=== PATIENT | female | born 1975 | race Caucasian/White ===

== ENCOUNTER 2016-11-17 12:32 | Outpatient (CLI) | payer SELFPAY | END 2016-11-17 12:33 | disposition home or self-care (01) | LOC: LABBT 12:32 | PROVIDERS: ATTEND Specialist | DX: Z01.812 Encounter for preprocedural laboratory examination (principal); C53.9 Malignant neoplasm of cervix uteri, unspecified ==

== ENCOUNTER 2016-11-18 06:12 | Day surgery (SDC) | payer MEDICAID, SELFPAY ==
[2016-11-17 12:54] VITALS: BMI 27.6
--- NOTE | 2016-11-17 15:29 | HP ---
HISTORY OF PRESENT ILLNESS: Ms. Dickerson is a 41-year-old female undergoing chemoradiation therapy fo r advanced cervical cancer. 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 She has been undergoing c hemotherapy weekly with Dr. Mcclellan. The patient's IV access is becoming difficult. Creatinine has raised to 1.7, needs IV access for hydration. Plan is to place a MediPort as an outpatient and dur ing that hospitalization perioperatively give her 2 liters of fluid. She had laboratories drawn on 11/16/2016. We will not repeat those. MEDICATIONS: Alprazolam 0.5 mg p.r.n., hydrocodone 7.5 p.r.n., tramadol p.r.n., OxyContin ER p.r.n. PAST SURGICAL HISTORY: Tonsillectomy. PAST MEDICAL HISTORY: Cervical cancer stage IIB. REVIEW OF SYSTEMS: Ten point noncontributory. PHYSICAL EXAMINATION: VITAL SIGNS: Blood pressure 112/71, heart rate 70, temperature 97.6 degrees. HEENT: Unremarkable. LUNGS: Clear to auscultation. CARDIAC: Regular rate and rhythm without murmur or gallop. ABDOMEN: Soft, nontender. EXTREMITIES: Unremarkable. ASSESSMENT AND PLAN: Cervical cancer stage IIB in need of chemotherapy and antineoplastic access. Plans placement of a MediPort, as an outpatient, can do this under inhalational local versus IV ondina tion local. Risks and benefits explained. She consents.
[2016-11-18] MEDS ORDERED: Bupivacaine 0.25% HCL 30 ML VIAL ONE (06:26)
[2016-11-18] MEDS ORDERED: Fentanyl 100 MCG/2 ML VIAL ONE (06:34)
[2016-11-18] MEDS ORDERED: Midazolam HCl 2 mg/2 ml Vial ONE (06:34)
[2016-11-18] MEDS ORDERED: Propofol 500 MG/50 ML VIAL ONE ×2 (06:34→07:35)
[2016-11-18] MEDS ORDERED: Lidocaine 1% w/Epinephrine 1:200K 30 ML VIAL ONE (08:27)
--- NOTE | 2016-11-18 09:33 | OP ---
DATE OF PROCEDURE: 11/18/2016 PREOPERATIVE DIAGNOSES: Cervical cancer in need of antineoplastic chemotherapy access and IV fluid access, acute kidney injury. POSTOPERATIVE DIAGNOSES: Cervical cancer in need of antineoplastic chemotherapy access, IV fluid ac cess, acute kidney injury. PROCEDURE: Right subclavian vein low profile MediPorts, fluoroscopy used. SURGEON: Dr. Ed Mcmahan ANESTHESIA: 1% Xylocaine with epinephrine, 30 mL, mixed with 0.5% Marcaine with epinephrine, 30 mL . PROCEDURE: The patient was taken to the operating room where under intravenous sedation her chest a nd neck were prepared with chloraprep, draped in routine fashion. Local anesthetic mixture infiltra johanna into skin and subcutaneous tissue about the operative site, 20 mL mixture used. Trocar catheter introduced infraclavicular right into the subclavian vein obtaining good return of venous blood. J -wire threaded, trocar catheter removed. Skin incised and enlarged sharply carried down through the skin and subcutaneous tissue and a subcutaneous pocket created with blunt and sharp dissection noti ng good hemostasis. Dilator and pull-away sheath placed over the J-wire into the subclavian vein an d superior vena cava and dilator and J-wire removed. Catheter placed with peel-away sheath which wa s removed. Fluoroscopically, the catheter tip noted to be in good position in the superior vena cav a. It was tailored to length and connected to the MediPort and placed in subcutaneous pocket and se cured with 2 interrupted sutures of 3-0 Prolene. Subcutaneous tissues approximated with 3-0 Monocry l, skin with subdermal 4-0 Monocryl and DermaGlue applied. MediPort accessed with a Robles needle an d good return of venous blood obtained and heparinized saline solution flushed in the MediPort. Goo d function noted. Final fluoroscopic images revealed good port and line placement. The patient received 3 liters of intravenous fluids prior to discharge.
--- NOTE | 2016-11-18 11:10 | RAD ---
UPRIGHT PORTABLE CHEST ONE VIEW: HISTORY: A 41-year-old female. FINDINGS: Heart size is normal. Lungs are clear. Right subclavian catheter and ejection port. IMPRESSION: No active intrathoracic disease. POS: [facility]
== END 2016-11-18 10:18 ==
LOC: SDC 06:12
PROVIDERS: ATTEND Specialist
PROC: B516ZZA Fluoroscopy of Right Subclavian Vein, Guidance (ICD-10-PCS; principal; 2016-11-18)
PROC: 05H533Z Insertion of Infusion Device into Right Subclavian Vein, Percutaneous Approach (ICD-10-PCS; principal; 2016-11-18)
DX: C53.9 Malignant neoplasm of cervix uteri, unspecified (principal); N17.9 Acute kidney failure, unspecified; D50.0 Iron deficiency anemia secondary to blood loss (chronic); R59.1 Generalized enlarged lymph nodes; Z79.891 Long term (current) use of opiate analgesic; Z79.899 Other long term (current) drug therapy
CPT/HCPCS: 71010; 76000; C1788; J1642; J2250; J2704; J3010; S0020

== ENCOUNTER 2016-11-30 14:47 | Outpatient (CLI) | payer MEDICAID ==
--- NOTE | 2016-11-30 23:09 | MRI ---
MRI OF THE PELVIS WITHOUT AND WITH CONTRAST 11/30/16 COMPARISON: None. HISTORY: Vaginal bleeding and pain for six months. Patient was diagnosed with cervical cancer in September. TECHNIQUE: Multiplanar and multisequence MRI images were obtained of the pelvis without and with IV contrast. FINDINGS: There is fullness in the cervical region which likely represents the patient's known cervical cancer . The width of the wall of the cervix is approximately 1.6 cm. The abnormal portion of the cervix in this location measures approximately 5.0 x 2.3 x 2.6 cm in size. This appears predominantly confine d to the cervix but may extend to the upper third of the vagina. This does not appear to extend to t he pelvic sidewall. There is enhancement extending beyond the cervix toward the pelvic sidewall whic h could represent parametrial invasion. No pelvic adenopathy is seen. The visualized bones are unremarkable. The urinary bladder is unremarkable. The ovaries are unremark able. IMPRESSION: There appears to be a cervical mass which represents the patient's known cervical cancer. This appea rs to be a T2 cervical cancer with likely parametrial invasion. POS: [facility]
--- OUTSIDE RECORDS SUMMARY | 2016-12-06 07:57 | XMS | Clinical Summary ---
:1975 Author Organization [facility] Address [facility] [place] [address] Phone Support Name Relationship Address Phone , Emergency Contact [address] [place] [address] Allergies No Known Allergies Current Medications Prescription Sig. Disp. Refills Start Date End Date Status promethazine Take 25 mg by Active (PHENERGAN) 25 mg mouth every 6 tablet hours as needed for Nausea or Vomiting. omeprazole (PRILOSEC) Take 20 mg by Active 20 mg delayed release mouth daily. capsule diphenoxylate-atropine Take 2 tablets Active (LOMOTIL) 2.5-0.025 mg by mouth every per tablet 6 hours as needed for Diarrhea. ALPRAZolam (XANAX) 0.5 Take 0.5 mg by Active mg tablet mouth 3 times daily. rolapitant (VARUBI) 90 Take 90 mg by Active mg TabIndications:take mouth. 2 tabs 1-2 before chemo scopolamine Apply 1 Patch 24 Patch 1 12/01/2016 Active (TRANSDERM-SCOP) 1 mg to skin as over 3 days patch directed every 72 hours. ondansetron (ZOFRAN) 4 Take 1 tablet 90 tablet 1 12/01/2016 12/21/2016 Active mg tablet by mouth every 8 hours as needed for up to 7 days for Nausea. mirtazapine (REMERON Take 1 tablet 30 tablet 6 12/01/2016 Active SOLTAB) 15 mg by mouth at disintegrating tablet bedtime nightly. nystatin (MYCOSTATIN) Apply to 30 g 3 12/01/2016 Active topical cream affected area 2 times daily. fentaNYL (DURAGESIC) Apply 1 Patch 5 Each 0 12/01/2016 Active 25 mcg/hr 72 hr to skin as transdermal patch directed every 72 hours. fluconazole (DIFLUCAN) Take 1 tablet 1 tablet 0 12/01/2016 12/02/2016 200 mg tablet by mouth daily for 1 dose. Active Problems Problem Noted Date Cervical cancer 12/01/2016 Overview: Added automatically from request for surgery [id number] Encounters Date Type Specialty Care Team Description 12/01/2016 Hospital Encounter Malignant neoplasm of endocervix (Primary Dx) 12/01/2016 Pharmacy Visit from Last 3 Months Social History Tobacco Use Types Packs/Day Years Used Date Never Assessed Sex Assigned at Date Recorded Not on file Last Filed Vital Signs Vital Sign Reading Time Taken Blood Pressure 126/96 12/01/2016 9:58 AM CDT Pulse 107 12/01/2016 9:58 AM CDT Temperature - - Respiratory Rate 19 12/01/2016 9:58 AM CDT Oxygen Saturation 100% 12/01/2016 9:58 AM CDT Inhaled Oxygen Concentration - - Weight 79 kg (174 lb 3.2 oz) 12/01/2016 9:58 AM CDT Height - - Body Mass Index - - Plan of Treatment Date Type Specialty Care Team Description 12/16/2016 Hospital Encounter Roselyn Chatterjee MD One [address] [address] 12/16/2016 Procedure Pass Health Maintenance Due Date Last Done Comments CERVICAL CANCER SCRN (3 YRS) 1995 BREAST CANCER SCRN (YEARLY) 2014 Procedures Procedure Name Priority Date/Time Associated Diagnosis Comments CASE REQUEST OPERATING Routine 12/01/2016 12:25 PM CDT ROOM from Last 3 Months Results Not on filefrom Last 3 Months
--- OUTSIDE RECORDS SUMMARY | 2016-12-06 07:57 | XMS | Encounter Summary ---
:1975 Author Organization [facility] Address [facility] [place] [address] Phone Care Team Providers Name Role Phone , Primary Care Provider Unavailable Encounter Details Date Type Department Care Team Description 12/01/2016 Pharm[place] [id number] [place] [address] Social History Tobacco Use Types Packs/Day Years Used Date Never Assessed Sex Assigned at Date Recorded Not on file as of this encounter Plan of Treatment Date Type Specialty Care Team Description 12/16/2016 Hospital Encounter Roselyn Chatterjee MD One [address] [address] 12/16/2016 Procedure Pass as of this encounter Visit Diagnoses Not on filein this encounter
--- OUTSIDE RECORDS SUMMARY | 2016-12-06 07:57 | XMS | Encounter Summary ---
:1975 Author Organization [facility] Address [address] [place] [id number] Phone Care Team Providers Name Role Phone , Primary Care Provider Unavailable Reason for Visit zAuth/Cert Status Reason Specialty Diagnoses / Procedures Referred By Contact Referred To Contact Diagnoses Cervical cancer Cervical cancer [C53.9] Roselyn Chatterjee, Roselyn Chatterjee, Procedures [employer] [place] [address] Encounter Details Date Type Department Care Team Description 12/16/2016 Hospital Encounter 3F Recovery (3FRC) BT Roselyn Chatterjee, [address] [phone] [place] [address] [phone] Social History Tobacco Use Types Packs/Day Years Used Date Never Assessed Sex Assigned at Date Recorded Not on file as of this encounter Plan of Treatment Date Type Specialty Care Team Description 12/16/2016 Hospital Encounter Roselyn Chatterjee MD [address] [address] [phone] 12/16/2016 Procedure Pass as of this encounter Visit Diagnoses Not on filein this encounter Admitting Diagnoses Diagnosis Cervical cancer - Cervical cancer [C53.9] Malignant neoplasm of cervix uteri, unspecified site
--- OUTSIDE RECORDS SUMMARY | 2016-12-06 07:57 | XMS | Encounter Summary ---
:1975 Author Organization [facility] Address [address] [place] [id number] Phone Care Team Providers Name Role Phone , Primary Care Provider Unavailable Encounter Details Date Type Department Care Team Description 12/16/2016 Procedure Pass 3F Recovery (3FRC) BT [address] [place] [address] Social History Tobacco Use Types Packs/Day Years Used Date Never Assessed Sex Assigned at Date Recorded Not on file as of this encounter Plan of Treatment Date Type Specialty Care Team Description 12/16/2016 Hospital Encounter Roselyn Chatterjee MD One [address] [address] 12/16/2016 Procedure Pass as of this encounter Visit Diagnoses Not on filein this encounter
--- OUTSIDE RECORDS SUMMARY | 2016-12-06 07:58 | XMS | Encounter Summary ---
:1975 Author Organization [facility] Address [address] [place] [address] Phone Care Team Providers Name Role Phone , Primary Care Provider Unavailable Encounter Details Date Type Department Care Team Description 12/01/2016 Hospital Encounter [place] Radiotherapy Malignant neoplasm of 25[address] [facility] endocervix (Primary [place]x) [place] [address] Social History Tobacco Use Types Packs/Day Years Used Date Never Assessed Sex Assigned at Date Recorded Not on file as of this encounter Last Filed Vital Signs Vital Sign Reading Time Taken Blood Pressure 126/96 12/01/2016 9:58 AM CDT Pulse 107 12/01/2016 9:58 AM CDT Temperature - - Respiratory Rate 19 12/01/2016 9:58 AM CDT Oxygen Saturation 100% 12/01/2016 9:58 AM CDT Inhaled Oxygen Concentration - - Weight 79 kg (174 lb 3.2 oz) 12/01/2016 9:58 AM CDT Height - - Body Mass Index - - in this encounter Medications at Time of Discharge Medication Sig. Disp. Refills Start Date End Date promethazine (PHENERGAN) Take 25 mg by mouth 25 mg tablet every 6 hours as needed for Nausea or Vomiting. omeprazole (PRILOSEC) 20 Take 20 mg by mouth mg delayed release capsule daily. diphenoxylate-atropine Take 2 tablets by (LOMOTIL) 2.5-0.025 mg per mouth every 6 hours tablet as needed for Diarrhea. ALPRAZolam (XANAX) 0.5 mg Take 0.5 mg by tablet mouth 3 times daily. rolapitant (VARUBI) 90 mg Take 90 mg by TabIndications:take 2 tabs mouth. 1-2 before chemo scopolamine Apply 1 Patch to 24 Patch 1 12/01/2016 (TRANSDERM-SCOP) 1 mg over skin as directed 3 days patch every 72 hours. ondansetron (ZOFRAN) 4 mg Take 1 tablet by 90 tablet 1 12/01/20162016 tablet mouth every 8 hours as needed for up to 7 days for Nausea. mirtazapine (REMERON Take 1 tablet by 30 tablet 6 12/01/2016 SOLTAB) 15 mg mouth at bedtime disintegrating tablet nightly. nystatin (MYCOSTATIN) Apply to affected 30 g 3 12/01/2016 topical cream area 2 times daily. fentaNYL (DURAGESIC) 25 Apply 1 Patch to 5 Each 0 12/01/2016 mcg/hr 72 hr transdermal skin as directed patch every 72 hours. fluconazole (DIFLUCAN) 200 Take 1 tablet by 1 tablet 0 12/01/20162016 mg tablet mouth daily for 1 dose. as of this encounter Plan of Treatment Date Type Specialty Care Team Description 12/16/2016 Hospital Encounter Roselyn Chatterjee MD One [address] [id number] 12/16/2016 Procedure Pass as of this encounter Procedures Procedure Name Priority Date/Time Associated Diagnosis Comments CASE REQUEST OPERATING Routine 12/01/2016 12:25 PM CDT ROOM in this encounter Visit Diagnoses Diagnosis Malignant neoplasm of endocervix - Primary
== END 2016-11-30 14:48 | disposition home or self-care (01) ==
LOC: MRI 14:47
PROVIDERS: ATTEND Radiology Radiation Oncology
DX: C53.0 Malignant neoplasm of endocervix (principal)
CPT/HCPCS: 72197